=== PATIENT | male | born 1980 | race Caucasian/White ===

== ENCOUNTER 2020-10-18 15:02 | Emergency (ER) | payer OTHER ==
[~2020-10-18] VITALS: Ht 177.8 cm; Wt 80.7 kg
[2020-10-18 15:23] LABS: BASO % 0 % (0-3); EOS % 0 % (0-3); HEMOGLOBIN 15.7 g/dL (13.0-17.5); LYMPH # 4.7 x10^3/uL (1.0-4.8); LYMPH % 41 % (24-48); MEAN CORPUSCULAR HEMOGLOBIN 33 pg (25-35); MEAN CORPUSCULAR HGB CONC 34 g/dL (31-37); MEAN CORPUSCULAR VOLUME 96 fL (79-100); MONO # 0.9 x10^3/uL (0.0-1.1); MONO % 8 % (0-9); NEUT # 5.7 x10^3uL (1.8-7.7); NEUT % 50 % (31-73); PLATELET COUNT 320 x10^3/uL (140-400); RED BLOOD COUNT 4.79 x10^6/uL (4.30-5.70); RED CELL DISTRIBUTION WIDTH 12.9 % (11.5-14.5); WHITE BLOOD COUNT 11.4 x10^3/uL (4.0-11.0)
--- NOTE | 2020-10-18 15:23 | PHYS DOC ---
Past History Past Medical History: No Pertinent History Past Surgical History: Other Additional Past Surgical Histo: nasal fracture Alcohol Use: Rarely Adult General Chief Complaint Chief Complaint: Palpitations HPI HPI Patient is a 40-year-old male, with no significant past medical history outside of heartburn who presents to the emergency department with a chief complaint of racing heart. States that a couple hours before coming to the emergency department he had just gotten plan some major league baseball video games and went to take a nap. States that soon as he laid down he felt like his heart was racing. Denies any diaphoresis, headache, changes in vision, chest pain, shortness of breath, abdominal pain, nausea, vomiting, diarrhea, dysuria, hematuria or blood in the stool. Denies any recent traumas, travel, known ill contacts, fevers, Covid/flu/cold symptoms. Denies any tobacco, alcohol or drug use. Does state that he had a double shot espresso drink earlier in the day before playing video games. States that he is in the and has been exercising quite a bit up until about a week or so ago, approximately 5 days a week and trying to lose some weight. States that he is lost about 5 to 10 ellie nds over the last 8 weeks or so. States that he is had these feelings before over the last couple of years and has had issues with anxiety attacks as well. Denies any known cardiac history in his family. Denies any dyspnea on exertion, orthopnea, PND or edema. Denies any exercise intolerance. Review of Systems Review of Systems Review of systems otherwise unremarkable except noted in HPI Allergies Allergies Allergies Coded Allergies Type Severity Reaction Last Updated Verified No Known Drug Allergies 10/18/20 No Physical Exam Physical Exam Constitutional: Well developed, well nourished, no acute distress, non-toxic appearance. [] HENT: Normocephalic, atraumatic, bilateral external ears normal, oropharynx moist, no oral exudates, nose normal. [] Eyes: conjunctiva normal, no discharge. [] Neck: Normal range of motion, no tenderness, supple, no stridor. [] Cardiovascular:Heart rate regular rhythm, no murmur [] Lungs & Thorax: Bilateral breath sounds clear to auscultation [] Abdomen: soft, no tenderness, no masses, no pulsatile masses. [] Skin: Warm, dry, no erythema, no rash. [] Back: No tenderness, Extremities: No tenderness, ROM intact, no edema. [] Neurologic: Alert and oriented X 3, no neurologic deficits noted. [] Psychologic: Affect normal, judgement normal, mood normal. [] Current Patient Data Vital Signs Vital Signs Date Time Temp Pulse Resp B/P (MAP) Pulse Ox O2 Delivery O2 Flow Rate FiO2 10/18/20 15:02 98.3 88 16 161/102 (121) 98 Room Air EKG EKG Rate of 96, QRS of 88, QTc of 428, no STEMI. [] Radiology/Procedures Radiology/Procedures []EXAM: Chest, single view. HISTORY: Palpitations. COMPARISON: None. FINDINGS: Frontal views of the chest are obtained. There is no infiltrate, pleural effusion or pneumothorax. The heart is normal in size. IMPRESSION: No acute pulmonary finding. Electronically signed by: Reyna Thapa MD (10/18/2020 3:22 PM) [facility] Heart Score C/O Chest Pain: No HEART Score for Chest Pain: HEART Score for Chest Pain Response (Comments) Value History Slighlty/Non-Suspicious 0 ECG Normal 0 Age < 45 0 Risk Factors No Risk Factors 0 Troponin < Normal Limit 0 Total 0 Risk Factors: Risk Factors: DM, Current or recent (<one month) smoker, HTN, HLP, family history of CAD, obesity. Risk Scores: Risk Factors: DM, Current or recent (<one month) smoker, HTN, HLP, family history of CAD, obesity. Course & Med Decision Making Course & Med Decision Making Patient is a 40-year-old male who presents to the emergency department with a chief complaint of palpitations Vital signs notable for hypertension. Physical exam noted above. EKG noted above with no STEMI. Troponin normal. Low risk Wells. PERC negative. Laboratory analysis not concerning. Chest x-ray noted above and not concerning. Patient asymptomatic in the ED with normal vital signs. Discussed all findings with patient and reassured at least at this time it did not appear that anything emergent going on. Advised that this does not necessarily mean that there is not something going on and needed to follow-up with his primary care physician as soon as you can to set up a follow-up appointment to discuss need for further evaluation and treatment. Gave strict return precautions to the ED. Patient grateful, verbalized understanding and agreed with plan of discharge. Draglefty Disclaimer [place] Disclaimer This electronic medical record was generated, in whole or in part, using a voice recognition dictation system. Departure Departure: Impression: Primary Impression: Racing heart beat Disposition: HOME / SELF CARE / HOMELESS Condition: GOOD Referrals: ORI ORTEGA MD Patient Instructions: Palpitations Additional Instructions: Please read all the attached information carefully. As discussed, please follow-up with your primary care physician as soon as you can or contact the local primary care physician at the number provided to update on ED visit and set up a follow-up as soon as you can to discuss need for further evaluation and treatment. Please come back to the emergency department immediately with new or concerning symptoms as discussed. BESS BHATTI MD October 18, 2020 15:23
--- NOTE | 2020-10-18 15:24 | RAD ---
EXAM: Chest, single view. HISTORY: Palpitations. COMPARISON: None. FINDINGS: Frontal views of the chest are obtained. There is no infiltrate, pleural effusion or pneumo thorax. The heart is normal in size. IMPRESSION: No acute pulmonary finding. Electronically signed by: Reyna Thapa MD (10/18/2020 3:22 PM) [facility]
[2020-10-18 15:36] VITALS: BP 147/90
[2020-10-18 15:44] LABS: CALCIUM 8.8 mg/dL (8.5-10.1); GFR 81.9; POTASSIUM 3.5 mmol/L (3.5-5.1)
[2020-10-18 15:50] LABS: ALBUMIN 4.3 g/dL (3.4-5.0); ALBUMIN/GLOBULIN RATIO 1.2 (1.0-1.7); MAGNESIUM 2.2 mg/dL (1.8-2.4); TOTAL BILIRUBIN 0.7 mg/dL (0.2-1.0); TOTAL PROTEIN 7.8 g/dL (6.4-8.2)
--- NOTE | 2020-10-18 17:13 | EKG ---
[address] [address] Test Date: 2020-10-18 Test Time: 15:04:29 Pat Name: JESUS MANUEL VERNON Department: Room: Gender: M Restaurant Manager: : 1980 Requested By: BESS BHATTI Order Number: [id number] Reading MD: Measurements Intervals [place] Rate: 96 P: 22 ND: 144 QRS: -1 QRSD: 88 T: 16 QT: 338 QTc: 428 Interpretive Statements SINUS RHYTHM LEFTWARD AXIS NO SPECIFIC ECG ABNORMALITIES RI6.02 No previous ECG available for comparison
== END 2020-10-18 16:05 | disposition home or self-care (01) ==
LOC: ER 15:02
DX: R00.0 Tachycardia, unspecified (principal); R00.2 Palpitations
CPT/HCPCS: 36415; 71045; 80053; 83735; 84484; 85025; 93005; 99285-25